=== PATIENT | female | born 1945 | race Caucasian/White ===

== ENCOUNTER 2016-12-28 10:33 | Outpatient (CLI) ==
[2014-05-16 08:12] VITALS: BMI 21.1
--- NOTE | 2016-12-28 11:30 | DI ---
EXAM: Five views of the lumbar spine HISTORY: Lumbar degenerative disease. COMPARISON: Lumbar spine x-rays 01/20/[address] lumbar spine 08/18/2016 FINDINGS: There are internal fixation screws in the S1 vertebral body with no evidence of hardware f racture or loosening. There is scattered mild facet arthropathy present. There is narrowing of the lumbosacral junction. There is no acute compression fracture in the lumbar spine. There is a stab le compression deformity at T12 unchanged from prior CT. There is scattered atherosclerotic disease and surgical clips in right upper quadrant. IMPRESSION: 1. No acute compression fracture or subluxation. 2. Hardware in the sacrum is present with no signs of loosening or fracture. 3. Mild scattered degenerative disease with facet arthropathy and narrowing at L5-S1 unchanged from prior CT. 4. Stable mild superior endplate compression deformity at T12.
== END 2016-12-28 10:34 | disposition home or self-care (01) ==
LOC: RAD 10:33
PROVIDERS: ATTEND Pain Medicine Interventional Pain Medicine
DX: M51.36 Other intervertebral disc degeneration, lumbar region (principal); M51.37 Other intervertebral disc degeneration, lumbosacral region; M96.1 Postlaminectomy syndrome, not elsewhere classified

== ENCOUNTER 2017-07-11 06:22 | Outpatient (CLI) ==
[2014-05-16 08:12] VITALS: BMI 21.1
--- NOTE | 2017-07-11 10:44 | ECHO2D ---
Date of Exam: 07/11/17 Ordering Physician: YG LEE Reason for Echo: COPD, SOB, CAD WITH STENT, HTN M-Mode Normal Adult Results LV Dimensions Normal Adult Results AoV Opening excursions >1.6 >1.6 LVEDD-base- 3.5-5.8 3.9 Ao root dimensions 2.0-3.7 3.5 LVESD-base- 3.1-4.6 L. Atrium dimensions 1.9-3.8 3.9 Post. Wall thickness 0.8-1.1 1.1 IV septum (thickness) 0.7-1.2 1.1 Post. Wall excursion 0.72-1.3 NORMAL Septal motion NORMAL Systolic motion R. Ventricular cavity 1.5-2.0 NORMAL LVEF 60% 64% Paradoxical septal wall motion NORMAL 2-D : 2-D M Mode Echocardiogram was performed using apical four chamber and left parasternal long and short axis views. Mitral, tricuspid and aortic valves appear to be normal. Contractility of the left ventricle seems to be normal, so is the cavity size. Left atrial cavity size and aortic root appear to be normal. There is no pericardial effusion. There is no thrombus noted in the left ventricular or left aortic cavity. No mitral valve prolapse noted. M-MODE: MV: NORMAL AV: NORMAL TV: NORMAL PV: CHAMBER SIZE: NORMAL WALL MOTION: NORMAL PERICARDIUM: NORMAL INTERPRETATION: 1. NORMAL 2 "D" "M" MODE ECHO MTDD
== END 2017-07-11 06:23 | disposition home or self-care (01) ==
LOC: CAR 06:22
PROVIDERS: ATTEND Internal Medicine
DX: J44.9 Chronic obstructive pulmonary disease, unspecified (principal); R06.02 Shortness of breath; I10 Essential (primary) hypertension; I25.10 Atherosclerotic heart disease of native coronary artery without angina pectoris; Z95.5 Presence of coronary angioplasty implant and graft
CPT/HCPCS: 93005; 93010

== ENCOUNTER 2017-07-12 06:21 | Outpatient (CLI) ==
[2014-05-16 08:12] VITALS: BMI 21.1
--- NOTE | 2017-07-12 12:11 | ECHOSTRESS ---
Date of Exam: 07/12/17 Ordering Physician: YG LEE Reason for Echo: COPD, SOB, CAD WITH STENT, HTN, STRESS TEST--NO ISCHEMIA M-Mode Normal Adult Results LV Dimensions Normal Adult Results AoV Opening excursions >1.6 LVEDD-base- 3.5-5.8 Ao root dimensions 2.0-3.7 LVESD-base- 3.1-4.6 L. Atrium dimensions 1.9-3.8 Post. Wall thickness 0.8-1.1 IV septum (thickness) 0.7-1.2 Post. Wall excursion 0.72-1.3 Septal motion Systolic motion R. Ventricular cavity 1.5-2.0 LVEF 60% Paradoxical septal wall motion 2-D: NORMAL LEFT VENTRICULAR CONTRACTILITY--RESTING AND POST EXERCISE M-MODE: MV: AV: TV: PV: CHAMBER SIZE: WALL MOTION: NORMAL LEFT VENTRICULAR CONTRACTILITY--RESTING AND POST EXERCISE PERICARDIUM: INTERPRETATION: 1. NORMAL LEFT VENTRICULAR CONTRACTILITY--RESTING AND POST EXERCISE MTDD
--- NOTE | 2017-07-12 12:30 | STRESSMOD ---
Ordering Physician: YG LEE Date of Test: 07/12/17 Medical History: COPD, SOB, CAD WITH STENT, HTN Current Medications: LOSARTAN, ESTRADIOL, ROSUVASTATIN, BRIO, DIAZEPAM Physical Findings: S1, S2, NO S3 Resting EKG: SINUS RHYTHM/ NO ACUTE CHANGES Target Heart Rate: 124/147 STAGE MPH/GRADE HEART RATE BPM BLOOD PRESSURE mmhg RHYTHM S-T SEGMENT UP DOWN SYMPTOMS,COMMENTS At Rest 70 140/84 SR X NONE 1 1.7/0% 104 156/76 SR X NONE 2 1.7/5% 120 166/80 SR X NONE 3 1.7/10% 4 2.5/12% 5 3.4/14% 6 4.2/16% 7 5.18% Immediately after 124 SR X SHORT OF BREATH Total Time: 7:07 Maximum Heart Rate Reached: 124 Reason for Termination: SHORT OF BREATH 2 MINUTES POST EXERCISE HR 77 BPM, BP 186/84 MMHG 5 MINUTES POST EXERCISE HR 69 BPM, BP 174/86 MMHG INTERPRETATION: 98% OXYGEN SATURATION WITH EXERCISE ON ROOM AIR METS 4.7 1. NO EVIDENCE OF ISCHEMIA BY ST-T WAVE 2. NO CHEST PAIN OR CHEST DISCOMFORT 3. FEW PVC'S WITH EXERCISE 4. BLOOD PRESSURE RESPONSE: BORDERLINE POST EXERCISE NORMAL LEFT VENTRICULAR CONTRACTILITY--RESTING AND POST EXERCISE MTDD
== END 2017-07-12 06:22 | disposition home or self-care (01) ==
LOC: CAR 06:21
PROVIDERS: ATTEND Internal Medicine
DX: J44.9 Chronic obstructive pulmonary disease, unspecified (principal); R06.02 Shortness of breath; I10 Essential (primary) hypertension; I25.10 Atherosclerotic heart disease of native coronary artery without angina pectoris; Z95.5 Presence of coronary angioplasty implant and graft

== ENCOUNTER 2018-01-25 00:01 | Outpatient (POV) ==
[2014-05-16 08:12] VITALS: BMI 21.1
== END 2018-01-25 17:00 ==
LOC: OUTPT 00:01
PROVIDERS: ATTEND Otolaryngology
DX: H91.90 Unspecified hearing loss, unspecified ear (principal)

== ENCOUNTER 2018-02-01 10:43 | Outpatient (CLI) | payer OTHER ==
[2014-05-16 08:12] VITALS: BMI 21.1
== END 2018-02-01 10:44 | disposition home or self-care (01) ==
LOC: RAD 10:43
PROVIDERS: ATTEND Obstetrics & Gynecology
DX: Z12.31 Encounter for screening mammogram for malignant neoplasm of breast (principal)
CPT/HCPCS: 77067

== ENCOUNTER 2018-03-23 08:18 | Outpatient (CLI) | payer OTHER ==
[2014-05-16 08:12] VITALS: BMI 21.1
--- NOTE | 2018-03-23 09:35 | DI ---
EXAM: Two views of the left hip. History: Left hip pain. Comparison: Left hip radiograph 08/18/2016 Findings: No acute fracture or dislocation. Mild to moderate narrowing of the left hip joint with sm all osteophytes slightly progressed compared to the prior study. Impression: 1. No acute osseous abnormality. 2. 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
== END 2018-03-23 08:19 | disposition home or self-care (01) ==
LOC: RAD 08:18
PROVIDERS: ATTEND Internal Medicine
DX: M25.552 Pain in left hip (principal)

== ENCOUNTER 2018-05-29 12:48 | Outpatient (CLI) ==
[2014-05-16 08:12] VITALS: BMI 21.1
== END 2018-05-29 12:49 | disposition home or self-care (01) ==
LOC: CAR 12:48
PROVIDERS: ATTEND Internal Medicine
DX: R00.2 Palpitations (principal)
CPT/HCPCS: 93227

== ENCOUNTER 2018-06-09 09:03 | Outpatient (CLI) | payer OTHER ==
[2014-05-16 08:12] VITALS: BMI 21.1
--- NOTE | 2018-06-09 11:31 | US ---
EXAM: Carotid ultrasound HISTORY: Dizziness COMPARISON: None TECHNIQUE: Carotid ultrasound was performed using pope scale, color, and Doppler imaging was perform ed. FINDINGS: Right carotid: There is mild atherosclerotic plaque in the bulb/internal carotid artery with visual estimate of narrowing less than 50%. Peak systolic velocity measurement in the right internal caroti d artery is 0.7 meters per second. End-diastolic velocity measurement in the right internal carotid artery is 0.7 meters per second. Right internal to common carotid artery peak systolic velocity rati o is 1.2. Flow in the right vertebral artery is antegrade. Left carotid: There is mild atherosclerotic plaque in the bulb/internal carotid artery with visual e stimate of narrowing less than 50%. Peak systolic velocity measurement in the left internal carotid artery is 0.8 meters per second. End-diastolic velocity measurement in the left internal carotid art trang is 0.2 meters per second. Left internal to common carotid artery peak systolic velocity ratio me asures 1.2. Flow in the left vertebral artery is antegrade. IMPRESSION: 1. Right internal carotid: No hemodynamically significant stenosis 2. Left internal carotid: No hemodynamically significant stenosis
== END 2018-06-09 09:04 | disposition home or self-care (01) ==
LOC: RAD 09:03
PROVIDERS: ATTEND Internal Medicine
DX: R42 Dizziness and giddiness (principal)

== ENCOUNTER 2018-08-22 06:37 | Outpatient (CLI) ==
[2014-05-16 08:12] VITALS: BMI 21.1
--- NOTE | 2018-08-22 09:29 | ECHO2D ---
Date of Exam: 08/22/18 Ordering Physician: DR. YG LEE Room #: OP Reason for Echo: SOB, CHEST PAIN, DIZZINESS M-Mode Normal Adult Results LV Dimensions Normal Adult Results AoV Opening excursions >1.6 1.6 LVEDD-base- 3.5-5.8 3.7 Ao root dimensions 2.0-3.7 3.4 LVESD-base- 3.1-4.6 L. Atrium dimensions 1.9-3.8 3.6 Post. Wall thickness 0.8-1.1 1.0 IV septum (thickness) 0.7-1.2 1.1 Post. Wall excursion 0.72-1.3 NORMAL Septal motion NORMAL Systolic motion R. Ventricular cavity 1.5-2.0 NORMAL LVEF 60% 60% Paradoxical septal wall motion NORMAL 2-D : 2-D M Mode Echocardiogram was performed using apical four chamber and left parasternal long and short axis views. Mitral, tricuspid and aortic valves appear to be normal. Contractility of the left ventricle seems to be normal, so is the cavity size. Left atrial cavity size and aortic root appear to be normal. There is no pericardial effusion. There is no thrombus noted in the left ventricular or left aortic cavity. No mitral valve prolapse noted. M-MODE: MV: NORMAL AV: NORMAL TV: NORMAL PV: CHAMBER SIZE: NORMAL WALL MOTION: NORMAL PERICARDIUM: NORMAL INTERPRETATION: 1. NORMAL 2 "D" "M" MODE ECHO MTDD
== END 2018-08-22 06:38 | disposition home or self-care (01) ==
LOC: CAR 06:37
PROVIDERS: ATTEND Internal Medicine
DX: R06.02 Shortness of breath (principal); R42 Dizziness and giddiness; R07.9 Chest pain, unspecified
CPT/HCPCS: 93005; 93010

== ENCOUNTER 2018-08-23 06:43 | Outpatient (CLI) ==
[2014-05-16 08:12] VITALS: BMI 21.1
--- NOTE | 2018-08-23 09:43 | STECHESEMD ---
Date of Test: 08/23/18 Ordering Physician: DR. YG LEE Occupation: HOUSEWIFE Reason for Exam:SOB, CHEST PAIN, DIZZINESS Smoking History: NON SMOKER Height: 67" Weight: 132 LBS Current Medications: CARVEDILOL, POTASSIUM, TIZANIDINE, CRESTOR, ESTRADIOL, BREO Resting EKG: SINUS RHYTHM/ NO ACTE CHANGES Target Heart Rate: 124/146 S-T SEGMENT STAGE MPH/GRADE HEART RATE BPM BLOOD PRESSURE mmhg RHYTHM +/- ELEVATION DEPRESSION SYMPTOMS,COMMENTS At Rest 54 BPM 122/86 MMHG SR X NONE 1 1.7/0% 107 SR X NONE 2 1.7/5% 164/76 MMHG 3 1.7/10% 4 2.5/12% 5 3.4/14% Immediately after 126 BPM 194/86 MMHG SR X SHORT OF BREATH Minutes Post Exercise 2:00 75 BPM 200/90 MMHG Minutes Post Exercise 5:00 65 BPM 170/92 MMHG SR X NO COMMENTS DURATION OF EXERCISE: 7:00 MAXIMUM HEART RATE REACHED: 126 BPM REASON FOR TERMINATION: SHORT OF BREATH 99% OXYGEN SATURATION WITH EXERCISE ON ROOM AIR METS 4.6 INTERPRETATION: 1. NO EVIDENCE OF ISCHEMIA BY ST-T WAVE 2. NO CHEST PAIN OR DISCOMFORT 3. PVC'S --RARE 4. BLOOD PRESSURE RESPONSE: SYSTOLIC HYPERTENSION WITH EXERCISE NORMAL LEFT VENTRICLE CONTRACTILITY--RESTING AND POST EXERCISE SESTAMIBI TO FOLLOW MTDD
--- NOTE | 2018-08-23 09:46 | ECHOSTRESS ---
Date of Exam: 08/23/18 Ordering Physician: DR. YG LEE Reason for Echo: SOB, CHEST PAIN, DIZZINESS, STRESS TEST--NO ISCHEMIA M-Mode Normal Adult Results LV Dimensions Normal Adult Results AoV Opening excursions >1.6 LVEDD-base- 3.5-5.8 Ao root dimensions 2.0-3.7 LVESD-base- 3.1-4.6 L. Atrium dimensions 1.9-3.8 Post. Wall thickness 0.8-1.1 IV septum (thickness) 0.7-1.2 Post. Wall excursion 0.72-1.3 Septal motion Systolic motion R. Ventricular cavity 1.5-2.0 LVEF 60% Paradoxical septal wall motion 2-D: NORMAL LEFT VENTRICULAR CONTRACTILITY--RESTING AND POST EXERCISE M-MODE: MV: AV: TV: PV: CHAMBER SIZE: WALL MOTION: NORMAL LEFT VENTRICULAR CONTRACTILITY--RESTING AND POST EXERCISE PERICARDIUM: INTERPRETATION: 1. NORMAL LEFT VENTRICULAR CONTRACTILITY--RESTING AND POST EXERCISE MTDD
--- NOTE | 2018-08-23 10:02 | NM ---
EXAM: Myocardial perfusion imaging HISTORY: Chest pain and shortness of breath COMPARISON: Myocardial perfusion imaging on 01/21/2016 was normal. TECHNIQUE: Patient was first injected 3.5 mCi of thallium 201 chloride intravenously while at rest. SPECT imaging of the heart was performed. Patient was subsequently stressed and injected 226 mCi of Tc99m Sestamibi intravenously. Another SPECT imaging of the heart was acquired. Gated cardiac study was also performed. FINDINGS: Post stress images show normal left ventricular cavity size. Isotope distribution is homog eneous in the left ventricle myocardium. No evidence of reversible ischemia or myocardial infarction . Left ventricular ejection fraction is 64% and wall motion is normal. IMPRESSION: Normal study
== END 2018-08-23 06:44 | disposition home or self-care (01) ==
LOC: CAR 06:43
PROVIDERS: ATTEND Internal Medicine
DX: R06.02 Shortness of breath (principal); R07.9 Chest pain, unspecified; R42 Dizziness and giddiness

== ENCOUNTER 2019-01-19 08:13 | Outpatient (CLI) | payer OTHER ==
[2014-05-16 08:12] VITALS: BMI 21.1
== END 2019-01-19 08:14 | disposition home or self-care (01) ==
LOC: LAB 08:13
PROVIDERS: ATTEND Internal Medicine
DX: E87.6 Hypokalemia (principal)
CPT/HCPCS: 36415; 80053

== ENCOUNTER 2019-02-15 08:54 | Outpatient (CLI) | payer OTHER ==
[2014-05-16 08:12] VITALS: BMI 21.1
== END 2019-02-15 08:55 | disposition home or self-care (01) ==
LOC: LAB 08:54
PROVIDERS: ATTEND Internal Medicine
DX: E78.5 Hyperlipidemia, unspecified (principal); Z79.899 Other long term (current) drug therapy
CPT/HCPCS: 36415; 80061; 80076

== ENCOUNTER 2019-02-22 13:28 | Outpatient (RCR) ==
[2019-02-23 08:24] VITALS: BP 128/64; TEMP 208.4; BMI 19.1
== END 2019-02-25 23:59 ==
LOC: CAR.REHAB 13:28
PROVIDERS: ATTEND Thoracic Surgery (Cardiothoracic Vascular Surgery)
DX: Z95.1 Presence of aortocoronary bypass graft (principal)

== ENCOUNTER 2019-02-26 07:56 | Outpatient (RCR) ==
[2019-03-26 09:57] VITALS: BP 116/56
== END 2019-03-27 23:59 ==
LOC: CAR.REHAB 07:56
PROVIDERS: ATTEND Thoracic Surgery (Cardiothoracic Vascular Surgery)
DX: Z95.1 Presence of aortocoronary bypass graft (principal)
CPT/HCPCS: 93798

== ENCOUNTER 2019-03-28 07:04 | Outpatient (RCR) ==
[2019-04-27 09:49] VITALS: BP 120/68
== END 2019-04-27 23:59 ==
LOC: CAR.REHAB 07:04
PROVIDERS: ATTEND Thoracic Surgery (Cardiothoracic Vascular Surgery)
DX: Z95.1 Presence of aortocoronary bypass graft (principal)
CPT/HCPCS: 93798